=== PATIENT | male | born 1990 | race Caucasian/White ===

== ENCOUNTER 2016-11-30 21:37 | Emergency (ER) | payer OTHER ==
[~2016-11-30] VITALS: Ht 170.2 cm; Wt 52.3 kg
[2016-11-30 21:56] LABS: HEMATOCRIT 42.5 % (38.0-50.0); MCH 29.2 PG (29.0-34.0); MCHC 34.6 G/DL (30.0-36.0); MCV 84.5 FL (86-99); MEAN PLAT.VOLUME 8.6 uM^3 (9.0-12.4); PLATELET COUNT 247 K/uL (156-360); RBC DIS.WIDTH-CV 13.3 % (11.8-14.6); RBC DIS.WIDTH-SD 40.8 % (39-53); RED BLOOD COUNT 5.03 M/uL (4.00-5.50); WHITE BLOOD COUNT 7.8 K/uL (4.1-10.2)
[2016-11-30 22:08] LABS: CHLORIDE 102 mEq/L (99-109); POTASSIUM 4.2 mEq/L (3.7-5.4); SODIUM 137 mEq/L (136-147)
[2016-11-30 22:10] LABS: GLUCOSE 144 mg/dL (70-99)
[2016-11-30 22:11] LABS: ANION GAP 16 MEQ/L (2-14)
[2016-11-30 22:14] LABS: GFR ESTIMATE (CALCULATED) > 59 mL/min/
[2016-11-30 22:15] LABS: UREA NITROGEN (BUN) 12 mg/dL (9-23)
[2016-11-30 22:16] LABS: CREATINE KINASE 227 IU/L (1-294); TOTAL CK 227 IU/L (1-294)
[2016-11-30 22:23] LABS: CK-MB 1.8 ng/mL (0.0-4.9)
[2016-12-01 04:11] VITALS: BP 121/80
== END 2016-12-01 04:12 | disposition home or self-care (01) ==
LOC: EME 21:37
PROVIDERS: Emergency Medicine
DX: R56.9 Unspecified convulsions (principal); R51 Headache
CPT/HCPCS: 70450; 80048; 82550; 82553; 85027; 99281; 99284; J1885; J2250; J2405; J7030

== ENCOUNTER 2017-04-27 14:50 | Emergency (ER) | payer OTHER ==
[~2017-04-27] VITALS: Ht 170.2 cm; Wt 65.9 kg
[2017-04-27] MEDS ORDERED: NARCAN4 MG NS (15:23)
[2017-04-27 15:31] VITALS: BP 118/86
== END 2017-04-27 15:32 ==
LOC: EME 14:50
DX: T40.1X1A Poisoning by heroin, accidental (unintentional), initial encounter (principal); Z72.0 Tobacco use
CPT/HCPCS: 99281; 99284